=== PATIENT | male | born 1955 | race Caucasian/White ===

== ENCOUNTER → 2022-03-24 | Outpatient (CLI) | payer MEDICARE, OTHER ==
[2022-03-24 13:28] LABS: BUN/CREATININE RATIO 23 (0-10)
== END ==
LOC: CT 12:49
PROVIDERS: Student in an Organized Health Care Education/Training Program
DX: I71.4 Abdominal aortic aneurysm, without rupture (principal)
CPT/HCPCS: 36415; 80048; Q9967